=== PATIENT | female | born 1960 | race Caucasian/White ===

== ENCOUNTER 2018-06-19 01:42 | Emergency (ER) | payer OTHER ==
[~2018-06-19] VITALS: Ht 172.7 cm; Wt 108.4 kg
[2018-06-19] MEDS ORDERED: KETOROLAC 30 MG/1 ML IM ONE (02:00)
[2018-06-19] MEDS ORDERED: KETOROLAC 30 MG/1 ML ONE (02:01)
--- NOTE | 2018-06-19 02:09 | NUR ---
PT. TO ROOM FROM LOBBY.
[2018-06-19] MEDS ORDERED: PROMETHAZINE 25 MG/ML, 1ML ONE (02:55)
[2018-06-19 03:00] VITALS: BP 129/82
[2018-06-19] MEDS ORDERED: PROMETHAZINE 25 MG/ML, 1ML IM ONE (03:00)
--- NOTE | 2018-06-19 03:01 | NUR ---
PT. MEDICATED PER GREGORY AND PROVIDED WITH WATER AFTER OK FROM [facility].
== END 2018-06-19 03:30 | disposition home or self-care (01) ==
LOC: ED 03:05
DX: G43.909 Migraine, unspecified, not intractable, without status migrainosus (principal)
CPT/HCPCS: 96372; 99283; J1885; J2550